=== PATIENT | female | born 1955 | race Caucasian/White ===

== ENCOUNTER 2021-10-11 09:46 | Observation (INO) ==
--- NOTE | 2021-09-28 14:55 | PAT Medication Instructions ---
Medication Instructions Date of Service September 28, 2021 Home Medications aspirin 81 mg tablet,delayed release 81 mg PO QAM losartan 25 mg tablet 12.5 mg PO QAM rosuvastatin 10 mg tablet 20 mg PO QAM acetaminophen 500 mg capsule 500 mg PO QID PRN Pain albuterol sulfate 90 mcg/actuation aerosol inhaler (Ventolin HFA) 2 puff inhalation QID PRN Shortness Of Breath Or Wheezing amino acids (Amino Acid capsule) 1 cap PO UD ASK your surgeon for instructions amino acids (Amino Acid capsule) 1 cap PO UD DO NOT take the morning of surgery losartan 25 mg tablet 12.5 mg PO QAM Take morning of surgery With a small sip of water, OTHERWISE NOTHING TO EAT OR DRINK AFTER MIDNIGHT: aspirin 81 mg tablet,delayed release 81 mg PO QAM (continue as normal unless told otherwise by surgeon) rosuvastatin 10 mg tablet 20 mg PO QAM acetaminophen 500 mg capsule 500 mg PO QID PRN Pain (if needed) albuterol sulfate 90 mcg/actuation aerosol inhaler (Ventolin HFA) 2 puff inhalation QID PRN Shortness Of Breath Or Wheezing (if needed) Take evening before surgery acetaminophen 500 mg capsule 500 mg PO QID PRN Pain (if needed) albuterol sulfate 90 mcg/actuation aerosol inhaler (Ventolin HFA) 2 puff inhalation QID PRN Shortness Of Breath Or Wheezing (if needed) Other Notes If you have any questions please call us at [phone] or [phone] or [phone] or [phone]
--- NOTE | 2021-10-01 13:24 | Anesthesiology Consultation ---
Date of Service October 01, 2021 Assessment & Plan (1) Encounter for pre-operative examination: COVID screening: Per assessment on 10/01: No known COVID-19 positive contacts or current COVID-19 related symptoms. Travel screen negative. Patient vaccinated. Surgeon arranging preop COVID testing. Awaiting results. Chart Review Chart Review: Acceptable Risk for Surgery and Patient seen in Pre Admission Testing Teaching & Discussion Pre-Anesthesia Teaching/Discussion Notes: Instructed NPO after midnight before surgery,except medications with 15 cc of water. Medication instructions provided according to the PAT guidelines. History Surgery Operation Date: 10/11/21 12:30 Proposed Procedures p Right Total Knee Arthroplasty - Talon Foster MD Height/Weight Height: 5 ft 2 in Weight: 114.8 kg Allergies Allergy/AdvReac Type Severity Reaction Status Date / Time No Known Allergies Allergy Verified 09/28/21 09:53 Medications Home Medications Medication Instructions Recorded Confirmed Last Taken aspirin 81 mg tablet,delayed 81 mg PO QAM 09/27/21 09/28/21 Unknown release losartan 25 mg tablet 12.5 mg PO QAM 09/27/21 09/28/21 Unknown rosuvastatin 10 mg tablet 20 mg PO QAM 09/27/21 09/28/21 Unknown acetaminophen 500 mg capsule 500 mg PO QID PRN Pain 09/28/21 09/28/21 Unknown albuterol sulfate 90 mcg/actuation 2 puff inhalation QID PRN 09/28/21 09/28/21 Unknown aerosol inhaler (Ventolin HFA) Shortness Of Breath Or Wheezing amino acids (Amino Acid capsule) 1 cap PO UD 09/28/21 09/28/21 Unknown Past Medical History Medical History Asthma Controlled History of bradycardia Remote records note hx of bradycardia on beta haydee s/p unremarkable stress echo 2012 (beta haydee since discontinued) Hx of idiopathic seizure Most recent seizure 2016 No etiology found, possible stress-related. No issues since anticonvulsants discontinued. Hyperlipidemia Hypertension Morbid obesity Prediabetes Sleep apnea CPAP (compliant) Exercise / Class Metabolic Activity III < 4 Walking/Shop/Light housework Past Surgical History Surgical History S/P cardiac catheterization 2008- "normal" per cardio records S/P carpal tunnel release b/l S/P colonoscopy S/P hysterectomy S/P unilateral salpingo-oophorectomy Status post lung surgery Left r/t infection (1993) Past Anesthesia History No Hx of Anesthesia Complications and No Family Hx of Anesthesia Complications History of PONV No Hx of PONV and Hx of Motion Sickness (Remote hx ) Social History Smoking Status: Former smoker Do You Dip or Chew Tobacco: No Smoking End Date: Quit 2016 Hx Alcohol Use: Yes (1 per day) Alcohol type: other (Vodka) alcohol intake frequency: 0-2 drinks per day (1 drink/day) Hx Substance Use: No substance use type: does not use Review of Systems Patient denies chest pain, shortness of breath, fever, chills, cough, wheezing, palpitations. Physical Exam Vital Signs VITALS BP 166/71 P 64 TEMP 98.0 SP02 98%RA RESP 18 PHYSICAL Full cervical extension range of motion. Full TMJ range of motion. TMD 4 finger breaths Mallampati Score 1 Dentition: missing sides, upper left side root canal repair Lungs: clear throughout to auscultation Cardiac: regular rate and rhythm, III/ systolic murmur Spine: normal Carotid arteries: negative bruit Extremities: no edema Lab Results Anesthesia Preop Results Results Anesthesia Widget: WBC 8.17 K/ul (4.8-10.8) 10/01/21 Hgb 11.2 g/dl (12.0-16.0) L 10/01/21 Hct 34.9 % (34.1-44.9) 10/01/21 Plt 299 K/uL (130-400) 10/01/21 Na 140 mmol/L (136-145) 10/01/21 K 4.9 mmol/L (3.5-5.1) 10/01/21 Cl 103 mmol/L (98-107) 10/01/21 CO2 31 mmol/L (21-32) 10/01/21 BUN 25 mg/dl (6-23) H 10/01/21 Creat 0.82 mg/dl (0.6-1.2) 10/01/21 Glucose Level 94 mg/dl (70-99(Fasting)) 10/01/21 PT 10.3 Seconds (9.0-12.0) 10/01/21 PTT 25.2 Seconds (21.0-31.0) 10/01/21 INR 1.0 (0.9-1.1) 10/01/21 Blood Type A Positive 10/01/21 Antibody Screen NEGATIVE 10/01/21 Testing Laboratory Results 08/31/21 HGBA1C 5.5% Electrocardiogram Date: 10/01/21 NSR at 61bpm. "Normal ECG" Chest X-Ray Date: 10/01/21 FINDINGS: Frontal and lateral radiographs of the chest demonstrate the cardiomediastinal silhouette to be within normal limits. There is mild asymmetric elevation of left hemidiaphragm with scarring at the left costop hrenic angle. The lungs are otherwise clear of alveolar opacities. There is no evidence for effusion bilaterally. There is no evidence for vascular congestion. There is no acute osseous pathology. IMPRESSION: No acute cardiopulmonary disease. Echocardiogram Date: 09/06/21 LVEF 60-64%. No regional motion abnormality. Mild LAE. Mildly calcified aortic valve. No significant valvular disease.
[~2021-10-11 09:46] MED LIST: ACETAMINOPHEN 500 MG TAB PO SCH; BUPIVACAINE 0.5 % 5 MG/1 ML PF 10ML VIAL ONE; BUPIVACAINE LIPOSOME/PF 266 MG, BUPIVACAINE/EPINEPHRINE 50 ML, SODIUM CHLORIDE 0.9% 30 ... INFIL SCH; CeleBREX 200 MG CAP PO SCH; FAMOTIDINE 20 MG TAB PO SCH; LR 500ML BOLUS, THEN 15ML/HR IV SCH; LR 60ML/HR IV SCH; METOCLOPRAMIDE HCL 10 MG TABLET PO SCH; ROPIVACAINE 0.5% 5 MG/ML 30 ML VIAL ONE; Scopolamine 1 MG TDSY TD SCH; TRANEXAMIC ACID 1,000 MG **IV Intra-op IV SCH; ceFAZolin 2000MG 2,000 MG/15 ML SYR IV SCH
--- NOTE | 2021-10-11 10:49 | History & Physical Bridge Note ---
Date of Service October 11, 2021 History & Physical Bridge Note I have examined the patient, reviewed the History & Physical and in the interval since the performance of the History & Physical I have noted the following changes of clinical significance: no changes noted
[2021-10-11] MEDS ORDERED: MIDAZOLAM HCL 1 MG/ML 2ML VIAL ONE (11:50)
[2021-10-11] MEDS ORDERED: PROPOFOL IV EMULSION 10 MG/ML 20 ML VIAL IV ONE ×4 (11:50→14:26)
[2021-10-11] MEDS ORDERED: fentaNYL citrate 100 MCG/2 ML VIAL ONE (11:50)
[2021-10-11] MEDS ORDERED: ATROPINE SULFATE 0.1 MG/ML 10ML SYR IV PRN (12:54)
[2021-10-11] MEDS ORDERED: ONDANSETRON INJ 2 MG/ML 2 ML VIAL IV PRN ×2 (12:54→16:56)
[2021-10-11] MEDS ORDERED: fentaNYL citrate 100 MCG/2 ML VIAL IV PRN (12:54)
[2021-10-11] MEDS ORDERED: ePHEDrine sulfate 50 MG/ML AMP IV PRN (12:54)
[2021-10-11] MEDS ORDERED: SODIUM CHLORIDE 0.9% PF 50 ML VIAL ONE (13:04)
[2021-10-11] MEDS ORDERED: BUPIVACAINE LIPOSOME 1.3% 266 MG/20 ML VIAL ONE (13:04)
[2021-10-11] MEDS ORDERED: BUPIVACAINE/EPINEPHRINE 0.25% 1:200,000 30 ML VIAL ONE (13:04)
[2021-10-11] MEDS ORDERED: ONDANSETRON INJ 2 MG/ML 2 ML VIAL ONE (13:42)
[2021-10-11] MEDS ORDERED: DEXAMETHASONE SOD INJ 4 MG/ML VIAL ONE (13:42)
--- NOTE | 2021-10-11 15:21 | Operative Report ---
PG Post Operative Report Pre & Post Diagnosis Operation Date: 10/11/21 12:30 Pre-Op Diagnosis: Right Knee Degenerative Joint Disease Post-Op Diagnosis: Right Knee Degenerative Joint Disease I identified the patient and participated in the time-out.: Yes Procedure Operation Date: 10/11/21 12:30 Actual Procedures p Right Total Knee Arthroplasty(Right) - Talon Foster MD Surgeon Talon Foster MD Chocolate Finisher Manny Nowak PA-C Estimated Blood Loss 50 Findings Consistent with Post-Op Diagnosis Operative findings real advanced right knee DJD primarily involving the medial and patellofemoral compartments. She did have full-thickness cartilage loss down to bone medially. Laterally her joint was pretty well-preserved. She had grade 4 Patellofemoral changes as well. Fluids 1300 cc Specimens Right knee sent for pathology Drains None Anesthesia Type Spinal MAC Complications none Disposition Accompanied Patient To Recovery: No Indications Patient is 66-year-old female has had a several year history of increasing right knee pain discomfort describes gotten worse over time patient been to extensive conservative treatment the past which would become less successful. X-rays show progressive medial joint space loss. She failed conservative measures and elected to a total knee arthroplasty. Description of Procedure Operative implants consist of: 1 Biomet Vanguard size 62.5 right posterior stabilized femoral component. 2. Biomet size 67 tibial tray. 3. 10 mm posterior stabilized polyethylene insert. 4. 28 x 8 all Paller patella. The patient was taken the operating, identified, and placed on the operating table supine position protectors were properly padded. IV antibiotics tried by anesthesia team. A spinal anesthetic and been implemented holding area. Odell catheter was placed in sterile fashion a right thigh tent was then placed in the right lower extremities then prepped and draped in usual sterile fashion. The right leg was elevated exsanguinated with use of an Esmarch interspaced at 3 mmHg. An anterior posterior the right knee was then performed to longitudinal incision centered over the patella. Sharp dissection was carried through subcutaneous tissues down the extensor mechanism. A medial parapatellar arthrotomy incision was made. Some subperiosteal dissection was carried out medially. The fat pad was resected from Neath patella tendon. The lateral patellofemoral ligament was released. Patella subluxated laterally and the knee was flexed. The osteophytes taken off distal femur. The ACL and PCL were then released from distal femur and the tibia subluxed subluxated anteriorly. External tibial alignment jig was placed in the interface the tibia and adjusted 14 mm medially. Proximal tibial cut was made remove about 2 to 3 mm of bone from the medial side. The tibia sized to a size 67. Attention drawn the femur. The distal femur was then with a sharp drill. Intramedullary canal was suction. A right 5 degree valgus cutting guide was placed. Distal femoral cutting block was pinned in place but distal femoral cut was made to take an additional 3 mm bone off distal femur. The femur was then sized to a size 62.5. The AP cutting block was pinned parallel to the epicondylar axis which was 4 degrees of external rotation. Anterior cut, anterior chamfer, posterior cut, posterior chamfer cuts were made to the box cutting guide was placed and adjusted slightly laterally. The box cut was made. The knee was flexed. The remnants of the medial and lateral menisci were excised. The osteophytes were taken off the posterior aspect of femur. A trial femoral component was placed. The tibial tr ay was pinned in maximum external rotation and the drill and stem punch were used. Defect in the proximal tibia for the tibial tray. Knee was then trialed with 10 mm insert fit most appropriately. Attention drawn to the patella. The patella was cleaned of all soft tissues. Patella thickness measured 16 mm in thickness and was cut down about 10. It was sized to a size 28 patella. The lug holes were drilled for the 28 patella. The lateral osteophytes removed. Patella button was placed. Knee was taken through range of motion patella tracked nicely with no thumbs test. Attention drawn to placing permanent components. All trial components were removed. Bone plug was placed in the distal femur limit blood loss. Double batch Palacos G cement was mixed. A Biomet Vanguard size 62.5 right posterior stabilized femoral component, size 67 tibial tray, 10 mm posterior stabilized polyethylene insert, and a 28 x 8 all Paller patella then cemented in place. The knee was brought out into full extension total cement hardened. Final cement check was then performed. Pericapsular tissues were injected with total of 100 cc of combination of 20 cc of Exparel, 30 cc normal saline, 50 cc of quarter percent Marcaine with epinephrine. Patient did receive 1 g tranexamic acid. The tourniquet was then let down for final turn time of 57 minutes. Hemostasis reduced electrocautery. Extensor mechanism closed with combination 1 PDS suture #1 Vicryl suture in [id number] fashion. Extensor mechanism checked found to be intact the subcutaneous tissue then closed with 2 Dexon suture in a buried interrupted fashion skin was closed skin giovanna. Leg was then cleaned and dried and sterile dressing was Xeroform, 4 x 4's, sterile cast padding, Franky bandage was applied. Patient was then transferred to the recovery room in stable condition. The patient tolerated procedure well and there were no complications. Manny Nowak, my physician itinerant teacher assistant, was present for the entire procedure. His assistance was essential and required for appropriate patient positioning, prepping and draping, surgical exposure, performing the technical details of the operation, placement the implants, closure of the wound, and placement of the sterile bandage. I attest to the content of the Intraoperative Record and any orders documented therein. Any exceptions are noted below.
--- NOTE | 2021-10-11 15:46 | XRay Report ---
TWO VIEWS RIGHT KNEE CLINICAL HISTORY: Postoperative examination. FINDINGS: AP and crosstable lateral portable views of the right knee are obtained. A right knee arthr oplasty is in near anatomic alignment. There has been undersurface remodeling of the patella. No acut e fracture is seen. There are expected postoperative changes around the knee including skin clips, so ft tissue edema, and subcutaneous gas. IMPRESSION: Expected postoperative changes status post right knee arthroplasty. No acute fracture is seen. ACT 112: Negative or not required by law. Electronically signed by: Júnior Burris M.D. 10/11/2021 3:45 PM
--- NOTE | 2021-10-11 16:03 | Anesthesiology Progress Note ---
Date of Service October 11, 2021 Anesthesia Post Procedure Vital Signs Vital Signs: Temp Pulse Pulse Resp BP BP Pulse Ox 10/11/21 15:55 54 L 14 144/70 H 98 10/11/21 15:45 54 L 17 140/64 98 10/11/21 15:35 54 L 13 126/67 98 10/11/21 15:26 58 L 18 129/61 100 10/11/21 15:17 97.3 F L 65 12 108/56 L 96 10/11/21 10:15 97.9 F 64 20 193/86 H 97 O2 Del Method O2 Flow Rate 10/11/21 15:55 Room Air 10/11/21 15:45 Room Air 10/11/21 15:35 Room Air 10/11/21 15:26 Oxymask 5 10/11/21 15:17 Oxymask 5 10/11/21 10:15 Room Air Transfer of Care Handoff Completed per policy Notes Mental Status: alert / awake / arousable and participated in evaluation Patient Amnestic to Procedure: Yes Nausea / Vomiting: adequately controlled Pain: adequately controlled Airway Patency, RR, SpO2: stable & adequate BP & HR: stable & adequate Hydration State: stable & adequate Neuraxial Anesthesia: was administered and sensory block is resolving Anesthetic Complications: no major complications apparent and Pt Satisfied with anesthetic care
[2021-10-11] MEDS ORDERED: ALUMINUM/MAGNESIUM SUSP 30 ML UDC PO PRN (16:56)
[2021-10-11] MEDS ORDERED: bisacodyL 10 MG SUPP PR PRN (16:56)
[2021-10-11] MEDS ORDERED: NON-FORMULARY MEDICATION (Amino Acids [Amino Acid] Capsule) PO SCH (16:56)
[2021-10-11] MEDS ORDERED: HYDROmorphone INJ 0.5 MG/0.5 ML SYR IV PRN (16:56)
[2021-10-11] MEDS ORDERED: NALOXONE HCL 0.4 MG/1 ML VIAL/CARP IV PRN (16:56)
[2021-10-11] MEDS ORDERED: oxyCODONE HCL IR 5 MG TAB (IMMEDIATE RELEASE) PO PRN (16:56)
[2021-10-11] MEDS ORDERED: METOCLOPRAMIDE HCL INJ 5 MG/ML 2 ML VIAL IV PRN (16:56)
[2021-10-11] MEDS ORDERED: MAGNESIUM HYDROXIDE SUSP 30 ML UDC PO PRN (16:56)
[2021-10-11] MEDS ORDERED: ALBUTEROL HFA 8 GM INHALER INH PRN ×2 (16:56→17:45)
[2021-10-11] MEDS: Scopolamine CHECK PATCH PLACEMENT SCH ×2 (17:07→23:35)
[2021-10-11] MEDS: SODIUM CHLORIDE 0.9% 1000ML 1,000 ML IV SCH (18:20)
[2021-10-11] MEDS: ASCORBIC ACID 500 MG TAB PO SCH (18:21)
[2021-10-11] MEDS: KETOROLAC TROMETHAMINE 15 MG/ML VIAL IV SCH ×2 (18:21→23:35)
[2021-10-11] MEDS: ceFAZolin 2000MG 2,000 MG/15 ML SYR IV SCH (20:20)
[2021-10-11] MEDS: ACETAMINOPHEN 500 MG TAB PO SCH (20:20)
[2021-10-11] MEDS: DOCUSATE SODIUM 100 MG CAP PO SCH (20:21)
[2021-10-11] MEDS: TAPENTADOL HCL ER 50 MG TABCR PO SCH (20:21)
[2021-10-11] MEDS: ASPIRIN 81 MG ECTAB PO SCH (20:21)
[2021-10-11] MEDS ORDERED: SENNA 8.6 MG TAB PO SCH (21:00)
[2021-10-11] MEDS ORDERED: DOCUSATE SODIUM/SENNA 50/8.6MG TAB PO SCH (21:00)
[2021-10-11] MEDS ORDERED: TRANEXAMIC ACID / 0.7% NACL 1,000 MG/100 ML BAG IV SCH (21:15)
[2021-10-11] MEDS ORDERED: ACETAMINOPHEN 500 MG TAB PO SCH (22:00)
[2021-10-12] MEDS: ceFAZolin 2000MG 2,000 MG/15 ML SYR IV SCH (04:42)
[2021-10-12] MEDS: KETOROLAC TROMETHAMINE 15 MG/ML VIAL IV SCH ×2 (04:47→11:04)
[2021-10-12] MEDS: SODIUM CHLORIDE 0.9% 1000ML 1,000 ML IV SCH (04:49)
[2021-10-12] MEDS ORDERED: dexAMETHasone 10 MG in SYRINGE 0 ML IV SCH (08:00)
[2021-10-12 08:28] LABS: Hemoglobin 9.6 g/dl (12.0-16.0); Mean Corpuscular Hgb Conc 33.1 g/dL (32.0-36.0); Mean Corpuscular Volume 96.7 fL (80.0-100.0); Mean Platelet Volume 9.9 fL (9.4-12.3); Platelet Count 265 K/uL (130-400); RDW Coefficient of Variation 11.9 % (11.5-14.5); White Blood Count 11.25 K/ul (4.8-10.8)
[2021-10-12 08:54] LABS: BUN Creatinine Ratio 26.5 (10-20); Calcium 8.1 mg/dl (8.5-10.1); Creatinine Clr Calc Pharmacy 66.9 ml/min; Est GFR (African American) 69.7 ml/min; Est GFR (Non-African American) 60.1 ml/min
[2021-10-12] MEDS ORDERED: MULTIVITAMIN TAB PO SCH (09:00)
[2021-10-12] MEDS ORDERED: LOSARTAN POTASSIUM 25 MG TAB PO SCH (09:00)
[2021-10-12] MEDS ORDERED: ROSUVASTATIN CALCIUM 20 MG TAB PO SCH (09:00)
[2021-10-12] MEDS: Scopolamine CHECK PATCH PLACEMENT SCH (09:04)
[2021-10-12] MEDS: TAPENTADOL HCL ER 50 MG TABCR PO SCH (09:04)
[2021-10-12] MEDS: ASCORBIC ACID 500 MG TAB PO SCH (09:05)
[2021-10-12] MEDS: ACETAMINOPHEN 500 MG TAB PO SCH (09:05)
[2021-10-12] MEDS: ASPIRIN 81 MG ECTAB PO SCH (09:07)
[2021-10-12] MEDS: DOCUSATE SODIUM 100 MG CAP PO SCH (09:08)
--- NOTE | 2021-10-12 09:40 | Orthopedic Progress Note ---
Date of Service October 12, 2021 Assessment & Plan (1) Status post total right knee replacement: She was seen and examined by Dr. Foster today. Pain is controlled. PT/OT wbat dvt prophylaxis: teds, scd's, aspirin d/c home with home health today. Subjective .66 year old patient POD #1 from right tka. Doing well. Not really having much pain. Doing PT at this time. No chest pain or shortness of breath. Review of Systems All systems reviewed & are unremarkable except as noted in HPI & below. Physical Exam . alert and oriented. NAD. VSS doing therapy. Dressing clean, dry, intact. Able to flex and extend her knee. Good straight leg raise. Motion about 0-90. NVI Results & Data Results & Data Laboratory Results . Diagnostic Findings . PG Care Time/CCT Total # of Minutes Spent Total Time Spent with Patient: Total time spent is greater than 50% in coordination of care (as documented) at patient's floor/unit and/or counseling patient: Coding Level of Care Code 39413 Post Operative Follow-Up Diagnoses Status post total right knee replacement Z96.651
--- NOTE | 2021-10-18 10:05 | Discharge Summary ---
Date of Service October 18, 2021 Discharge Data Procedures Performed Operation Date: 10/11/21 12:30 Actual Procedures p Right Total Knee Arthroplasty(Right) - Talon Foster MD Hospital Course (1) Status post total right knee replacement: This is a 66 year old patient admitted on 10/11/21 and underwent total knee arthroplasty. She tolerated the procedure well and there were no complications. Transferred to the PACU post op and later to the orthopedic floor for further care. She was given ancef for antibiotic prophylaxis. She was also given THEO stockings, SCDs, and aspirin for DVT prophylaxis. Hemoglobin, hematocrit, and vital signs were monitored during her hospital stay and remained stable. Did not require any blood transfusions. There were no complications during her hospital stay. By post op day #1 the patient was tolerating a regular diet, pain was reasonably controlled with oral pain medicine, and she was participating in physical therapy. On post op day #1 the patient was discharged home. She was given printed discharge instructions including prescriptions for extra strength tylenol, aspirin, toradol, zofran, senokot, and oxycodone. Continue physical therapy, weight bearing as tolerated. Continue THEO stockings. Follow up approximately 2 weeks post op or sooner if there are problems or concerns. Coding Level of Care Code None Diagnoses Status post total right knee replacement Z96.651
== END 2021-10-12 13:23 | disposition home or self-care (01) ==
LOC: 3E 09:46 → ASU 09:46